=== PATIENT | male | born 1980 | race Caucasian/White ===

== ENCOUNTER 2019-04-23 01:32 | Emergency (ER) | payer OTHER ==
[~2019-04-23] VITALS: Ht 167.6 cm; Wt 105.7 kg
[2019-04-23] MEDS ORDERED: METOCLOPRAMIDE HCL 10 MG/2 ML VIAL. IVP ONE (01:45)
[2019-04-23] MEDS ORDERED: KETOROLAC 15 MG/ML VIAL. IV ONE (01:45)
[2019-04-23] MEDS ORDERED: IV NORMAL SALINE 1000ML BAG 1,000 ML IV ONE (01:45)
[2019-04-23 01:55] LABS: BASO # 0.1 x10^3/uL (0.0-0.2); BASO % 1 % (0-3); EOS # 0.2 x10^3/uL (0.0-0.7); EOS % 2 % (0-3); HEMATOCRIT 41.5 % (39.0-53.0); HEMOGLOBIN 14.1 g/dL (13.0-17.5); LYMPH # 6.4 x10^3/uL (1.0-4.8); LYMPH % 45 % (24-48); MEAN CORPUSCULAR HEMOGLOBIN 29 pg (25-35); MEAN CORPUSCULAR HGB CONC 34 g/dL (31-37); MEAN CORPUSCULAR VOLUME 84 fL (79-100); MONO # 1.3 x10^3/uL (0.0-1.1); MONO % 9 % (0-9); NEUT # 6.1 x10^3/uL (1.8-7.7); NEUT % 43 % (31-73); PLATELET COUNT 280 x10^3/uL (140-400); RED BLOOD COUNT 4.93 x10^6/uL (4.30-5.70); RED CELL DISTRIBUTION WIDTH 14.2 % (11.5-14.5); WHITE BLOOD COUNT 14.2 x10^3/uL (4.0-11.0)
[2019-04-23 02:01] LABS: CALCIUM 9.2 mg/dL (8.5-10.1); CREATININE 1.2 mg/dL (0.7-1.3); GFR 67.1; POTASSIUM 3.3 mmol/L (3.5-5.1)
[2019-04-23 02:08] LABS: ALBUMIN/GLOBULIN RATIO 1.3 (1.0-1.7); TOTAL BILIRUBIN 0.3 mg/dL (0.2-1.0); TOTAL PROTEIN 7.1 g/dL (6.4-8.2)
[2019-04-23 02:17] LABS: BILIRUBIN,URINE NEGATIVE (NEG); CLARITY,URINE CLOUDY; COLOR,URINE YELLOW; NITRITE,URINE NEGATIVE (NEG); PH,URINE 5.5; PROTEIN,URINE NEGATIVE (NEG-TRACE); UROBILINOGEN,URINE 0.2 mg/dL (0.2 mg/dL)
[2019-04-23 02:32] LABS: BACTERIA,URINE 0 /HPF (0-FEW); RBC,URINE OCC /HPF (0-2); SQUAMOUS EPITHELIAL CELL,UR OCC /LPF; WBC,URINE OCC /HPF (0-4)
[2019-04-23 02:33] LABS: HYALINE CASTS, URINE OCCASIONAL /HPF
--- NOTE | 2019-04-23 02:37 | PHYS DOC ---
Past Medical History Past Medical History: Diabetes-Type II, High Cholesterol Past Surgical History: No Surgical History Additional Information: Nonsmoker Alcohol Use: Occasionally Drug Use: None Adult General Chief Complaint Chief Complaint: FLANK PAIN HPI HPI 38-year-old male presents with report of right flank pain with radiation to groin which started approximately 30 minutes prior to arrival. Patient reports some associated nausea and diaphoresis. Denies history of prior episodes. Patient also feels dizzy. Denies trauma. Denies fever or chills. Denies dysuria or hematuria. Review of Systems Review of Systems Constitutional: Denies fever or chills Eyes: Denies redness or eye pain HENT: Denies nasal congestion or sore throat Respiratory: Denies cough or shortness of breath Cardiovascular: Denies chest pain or palpitations GI: Denies abdominal pain; reports nausea and constipation : Denies dysuria or hematuria; reports right groin pain; denies swelling Musculoskeletal: Reports right flank pain; denies neck pain Integument: Denies rash or skin lesions; reports diaphoresis Neurologic: Denies headache, focal weakness or sensory changes Complete systems were reviewed and found to be within normal limits, except as documented in this note. Current Medications Current Medications Current Medications Medications (Trade) Dose Ordered Sig/Gutierrez Start Time Stop Time Status Last Admin Dose Admin Acetaminophen/ Hydrocodone Bitart (Lortab 5/325) 1 tab 1X ONCE 04/23/19 04:30 04/23/19 04:31 UNV Fentanyl Citrate (Fentanyl 2ml Vial) 50 mcg 1X ONCE 04/23/19 02:45 04/23/19 02:46 DC 04/23/19 02:56 50 MCG Ketorolac Tromethamine (Toradol 15mg Vial) 15 mg 1X ONCE 04/23/19 01:45 04/23/19 01:46 DC 04/23/19 02:06 15 MG Metoclopramide HCl (Reglan Vial) 10 mg 1X ONCE 04/23/19 01:45 04/23/19 01:46 DC 04/23/19 02:06 10 MG Sodium Chloride 1,000 ml @ 1,000 mls/hr 1X ONCE 04/23/19 01:45 04/23/19 02:44 DC 04/23/19 02:09 1,000 MLS/HR Tamsulosin HCl (Flomax) 0.4 mg 1X ONCE 04/23/19 04:30 04/23/19 04:31 UNV Allergies Allergies Allergies Coded Allergies Type Severity Reaction Last Updated Verified No Known Drug Allergies 04/23/19 No Physical Exam Physical Exam Constitutional: Well developed, well nourished, uncomfortable, non-toxic appearance HENT: Normocephalic, atraumatic, oropharynx moist Eyes: Conjunctiva normal, no discharge Neck: Normal range of motion, no tenderness, supple Cardiovascular: Heart rate normal, regular rhythm Lungs & Thorax: Bilateral breath sounds clear to auscultation, no wheezing Abdomen: Soft, no tenderness Skin: Warm, dry, no erythema, no rash Back: No tenderness, right CVA tenderness Extremities: No tenderness, ROM intact, no edema Neurologic: Alert and oriented X 3, no focal deficits noted Psychologic: Affect normal, judgement normal Current Patient Data Vital Signs Vital Signs Date Time Temp Pulse Resp B/P (MAP) Pulse Ox O2 Delivery O2 Flow Rate FiO2 04/23/19 02:56 20 99 Room Air 04/23/19 01:32 97.4 62 167/96 (119) 97.4 Lab Values Laboratory Tests Test 04/23/19 01:36 04/23/19 01:40 04/23/19 02:10 Troponin I Quantitative < 0.017 ng/mL (0.000-0.055) White Blood Count 14.2 x10^3/uL (4.0-11.0) H Red Blood Count 4.93 x10^6/uL (4.30-5.70) Hemoglobin 14.1 g/dL (13.0-17.5) Hematocrit 41.5 % (39.0-53.0) Mean Corpuscular Volume 84 fL (79-100) Mean Corpuscular Hemoglobin 29 pg (25-35) Mean Corpuscular Hemoglobin Concent 34 g/dL (31-37) Red Cell Distribution Width 14.2 % (11.5-14.5) Platelet Count 280 x10^3/uL (140-400) Neutrophils (%) (Auto) 43 % (31-73) Lymphocytes (%) (Auto) 45 % (24-48) Monocytes (%) (Auto) 9 % (0-9) Eosinophils (%) (Auto) 2 % (0-3) Basophils (%) (Auto) 1 % (0-3) Neutrophils # (Auto) 6.1 x10^3/uL (1.8-7.7) Lymphocytes # (Auto) 6.4 x10^3/uL (1.0-4.8) H Monocytes # (Auto) 1.3 x10^3/uL (0.0-1.1) H Eosinophils # (Auto) 0.2 x10^3/uL (0.0-0.7) Basophils # (Auto) 0.1 x10^3/uL (0.0-0.2) Sodium Level 141 mmol/L (136-145) Potassium Level 3.3 mmol/L (3.5-5.1) L Chloride Level 103 mmol/L (98-107) Carbon Dioxide Level 24 mmol/L (21-32) Anion Gap 14 (6-14) Blood Urea Nitrogen 22 mg/dL (8-26) Creatinine 1.2 mg/dL (0.7-1.3) Estimated GFR (Cockcroft-Gault) 67.1 BUN/Creatinine Ratio 18 (6-20) Glucose Level 188 mg/dL (70-99) H Calcium Level 9.2 mg/dL (8.5-10.1) Magnesium Level 2.0 mg/dL (1.8-2.4) Total Bilirubin 0.3 mg/dL (0.2-1.0) Aspartate Amino Transferase (AST) 27 U/L (15-37) Alanine Aminotransferase (ALT) 62 U/L (16-63) Alkaline Phosphatase 88 U/L (46-116) Creatine Kinase 195 U/L (39-308) Creatine Kinase MB (Mass) 2.0 ng/mL (0.0-3.6) Creatine Kinase MB Relative Index 1.0 % (0-4) Total Protein 7.1 g/dL (6.4-8.2) Albumin 4.0 g/dL (3.4-5.0) Albumin/Globulin Ratio 1.3 (1.0-1.7) Lipase 141 U/L (73-393) Urine Collection Type Unknown Urine Color Yellow Urine Clarity Cloudy Urine pH 5.5 Urine Specific [place] 1.025 Urine Protein Negative mg/dL (NEG-TRACE) Urine Glucose (UA) Negative mg/dL (NEG) Urine Ketones (Stick) Negative mg/dL (NEG) Urine Blood Negative (NEG) Urine Nitrite Negative (NEG) Urine Bilirubin Negative (NEG) Urine Urobilinogen Dipstick 0.2 mg/dL (0.2 mg/dL) Urine Leukocyte Esterase Negative (NEG) Urine RBC Occ /HPF (0-2) Urine WBC Occ /HPF (0-4) Urine Squamous Epithelial Cells Occ /LPF Urine Bacteria 0 /HPF (0-FEW) Urine Hyaline Casts Occasional /HPF Urine Mucus Mod /LPF Laboratory Tests 04/23/19 01:40 Laboratory Tests 04/23/19 01:40 EKG EKG @0207 NSR at 61bpm, NO ST elevation, Q wave in III and aVF Radiology/Procedures Radiology/Procedures PROCEDURE: CT ABDOMEN PELVIS WO CONTRAST Study: CT abdomen and pelvis without contrast Indication: Right flank pain. Comparison: None. Technique: Helical CT imaging performed of the abdomen and pelvis without the use of intravenous contrast. Sagittal and coronal reformats were obtained. One or more of the following individualized dose reduction techniques were utilized for this examination: 1. Automated exposure control 2. Adjustment of the mA and/or kV according to patient size 3. Use of iterative reconstruction technique. Findings: Paraseptal cyst seen at the periphery of the right lower lobe. Groundglass haziness at the dependent aspect of both lower lungs. The visualized heart appears somewhat prominent in size. No pleural effusion. Hepatic steatosis. Unremarkable gallbladder, pancreas, spleen and adrenal glands. Obstructing nephrolithiasis at the ureterovesicular junction on the right, image 214 series 2, with the calculus measuring 4.2 mm. Resultant mild hydroureteronephrosis. No nephrolithiasis or hydroureteronephrosis on the left. The urinary bladder is mostly collapsed. The prostate is normal in size. Scattered colonic diverticuli without diverticulitis. The appendix is normal. Nonobstructed small bowel. Rounded focus of fat attenuation at the proximal aspect of the transverse duodenum, image 88 series 2. The stomach is unremarkable. Left larger than right fat-containing inguinal hernias. No complicating features. Incidental note made of chronic bilateral pars defects at both L4 and L5 with associated grade 1 anterolisthesis at these levels. Resultant bony encroachment on the bilateral neural foramina at these levels though more pronounced at L4-L5. Sclerotic focus within the left pubic body, image 229 series 2, is favored to represent an enostosis. An enostosis is also seen in the right femoral neck. Impression: 1. Obstructing nephrolithiasis measuring 4.2 mm located at the right ureterovesicular junction. Mild upstream hydronephrosis. 2. Hepatic steatosis. 3. 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 4. Bilateral chronic pars defects at L4 and L5 with resultant grade 1 anterolisthesis at the associated levels. Bony neural foraminal encroachment on the bilateral neural foramina at L4-L5 more so than L5-S1. 5. Left larger than right fat-containing inguinal hernia is without complicating features. Electronically signed by: JONNATHAN CARPIO MD (04/23/2019 4:13 AM) [facility] Course & Med Decision Making Course & Med Decision Making Pertinent Labs and Imaging studies reviewed. (See chart for details) Patient presents with report of right flank pain with associated nausea. Patient does appear uncomfortable and diaphoretic. Pain/nausea addressed. IV fluid hydration given. EKG stable. Labs obtained and posted to chart. CT eviden ce/pelvis confirmed signs of obstructing ureteral calculi 4 mm. Flomax provided. Patient stable for discharge with outpatient follow-up with PCP/urology. Urology referral provided. Discussed findings and plan with patient, who acknowledges understanding and agreement. Dragon Disclaimer Dragon Disclaimer This electronic medical record was generated, in whole or in part, using a voice recognition dictation system. Departure Departure Impression: Primary Impression: Ureteral calculus, right Disposition: 01 HOME, SELF-CARE Condition: STABLE Referrals: MAGALIE ACEVEDO (PCP) THANG LORENOZ MD Patient Instructions: Diet for Kidney Stones, Kidney Stones, Jpcs-en-Demr Scripts Hydrocodone/Apap 5-325 (NORCO 5-325 TABLET) 1 Each Tablet 0.5-1 TAB PO PRN Q6HRS PRN for PAIN, #10 TAB 0 Refills Prov: YAN COPE DO 04/23/19 Tamsulosin Hcl (FLOMAX) 0.4 Mg Cap.er.24h 1 CAP PO DAILY, #7 CAP Prov: YAN COPE DO 04/23/19 Ondansetron (ONDANSETRON ODT) 4 Mg Tab.rapdis 1 TAB PO PRN Q6-8HRS PRN for NAUSEA, #16 TAB Prov: YAN COPE DO 04/23/19 YAN COPE DO Apr 23, 2019 02:37
[2019-04-23] MEDS ORDERED: fentaNYL PF VIAL 100 MCG/2 ML VIAL IV ONE (02:45)
[2019-04-23 04:12] VITALS: BP 147/89
--- NOTE | 2019-04-23 04:16 | RAD ---
Study: CT abdomen and pelvis without contrast Indication: Right flank pain. Comparison: None. Technique: Helical CT imaging performed of the abdomen and pelvis without the use of intravenous contrast. Sagittal and coronal reformats were obtained. One or more of the following individualized dose reduction techniques were utilized for this examination: 1. Automated exposure control 2. Adjustment of the mA and/or kV according to patient size 3. Use of iterative reconstruction technique. Findings: Paraseptal cyst seen at the periphery of the right lower lobe. Groundglass haziness at the dependent aspect of both lower lungs. The visualized heart appears somewhat prominent in size. No pleural effusion. Hepatic steatosis. Unremarkable gallbladder, pancreas, spleen and adrenal glands. Obstructing nephrolithiasis at the ureterovesicular junction on the right, image 214 series 2, with the calculus measuring 4.2 mm. Resultant mild hydroureteronephrosis. No nephrolithiasis or hydroureteronephrosis on the left. The urinary bladder is mostly collapsed. The prostate is normal in size. Scattered colonic diverticuli without diverticulitis. The appendix is normal. Nonobstructed small bowel. Rounded focus of fat attenuation at the proximal aspect of the transverse duodenum, image 88 series 2. The stomach is unremarkable. Left larger than right fat-containing inguinal hernias. No complicating features. Incidental note made of chronic bilateral pars defects at both L4 and L5 with associated grade 1 anterolisthesis at these levels. Resultant bony encroachment on the bilateral neural foramina at these levels though more pronounced at L4-L5. Sclerotic focus within the left pubic body, image 229 series 2, is favored to represent an enostosis. An enostosis is also seen in the right femoral neck. Impression: 1. Obstructing nephrolithiasis measuring 4.2 mm located at the right ureterovesicular junction. Mild upstream hydronephrosis. 2. Hepatic steatosis. 3. 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 4. Bilateral chronic pars defects at L4 and L5 with resultant grade 1 anterolisthesis at the associated levels. Bony neural foraminal encroachment on the bilateral neural foramina at L4-L5 more so than L5-S1. 5. Left larger than right fat-containing inguinal hernia is without complicating features. Electronically signed by: JONNATHAN CARPIO MD (04/23/2019 4:13 AM) [place] [id number]
[2019-04-23] MEDS ORDERED: TAMS0.4C97 PO (04:21)
[2019-04-23] MEDS ORDERED: ONDA4TAB12 PO (04:21)
[2019-04-23] MEDS ORDERED: HYDR-3164 PO (04:27)
[2019-04-23] MEDS ORDERED: TAMSULOSIN 0.4 MG CAP.ER.24H. PO ONE (04:45)
[2019-04-23] MEDS ORDERED: HYDROcodone/APAP 5/325MG 1 TAB TABLET PO ONE (04:45)
--- NOTE | 2019-04-23 08:03 | EKG ---
[facility] [address] [place] [address] Test Date: 2019-04-23 Test Time: 02:07:42 Pat Name: ZAYDA ROBBINS Department: Room: Gender: M [employer]: : 1980 Requested By: YAN COPE Order Number: [id number] Reading MD: Measurements Intervals [place] Rate: 61 P: 0 NH: 182 QRS: -7 QRSD: 94 T: 49 QT: 400 QTc: 404 Interpretive Statements SINUS RHYTHM LEFTWARD AXIS QRS(T) CONTOUR ABNORMALITY CONSISTENT WITH INFERIOR INFARCT PROBABLY OLD ABNORMAL ECG RI6.01 No previous ECG available for comparison
== END 2019-04-23 05:10 | disposition home or self-care (01) ==
LOC: ER 01:32
DX: N13.2 Hydronephrosis with renal and ureteral calculous obstruction (principal); R42 Dizziness and giddiness; K40.90 Unilateral inguinal hernia, without obstruction or gangrene, not specified as recurrent; K76.0 Fatty (change of) liver, not elsewhere classified; E78.00 Pure hypercholesterolemia, unspecified; E11.9 Type 2 diabetes mellitus without complications
CPT/HCPCS: 36415; 74176; 80053; 81001; 82553; 83690; 83735; 84484; 85025; 93005; 96361; 96374; 96375; 99285; J1885; J2765; J3010; J7030

== ENCOUNTER → 2019-09-05 | Outpatient (CLI) | payer OTHER ==
[~2019-09-05] MED LIST: HYDR-3164 PO; ONDA4TAB12 PO; TAMS0.4C97 PO
--- NOTE | 2019-09-05 14:31 | KCIC ---
EXAM: Abdomen and pelvis CT without intravenous contrast. HISTORY: Flank pain. TECHNIQUE: Computed tomographic images of the abdomen and pelvis were obtained without contrast. Multiplanar reformatting was performed. *One or more of the following individualized dose reduction techniques were utilized for this examination: 1. Automated exposure control. 2. Adjustment of the mA and/or kV according to patient size. 3. Use of iterative reconstruction technique. COMPARISON: 04/23/2019. FINDINGS: Evaluation of the lower thorax demonstrates no infiltrate or pleural effusion. No hepatic lesion is seen. The gallbladder, pancreas, spleen and adrenal glands are unremarkable. There is a stable 1.4 cm lipoma within the proximal duodenum. There is no evidence of nephroureterolithiasis or hydronephrosis. The urinary bladder is unremarkable. There are small fat-containing left greater than right inguinal hernias. There is no appendicitis. There is no bowel obstruction. There is no abnormal bowel wall thickening. There are few sigmoid diverticula. There is no evidence of diverticulitis. There is no lymphadenopathy. There is no suspicious osseous lesion. There is degenerative change primarily at L4-L5. There are bilateral pars interarticularis defects with grade 1 anterolisthesis of L4 on L5 and L5 on S1. IMPRESSION: 1. No evidence of nephroureterolithiasis or hydronephrosis. 2. Sigmoid diverticulosis. 3. Minimal grade 1 anterolisthesis of L4 on L5 and L5 on S1 with associated pars interarticularis defects. 4. Stable small lipoma within the proximal duodenum. Electronically signed by: Kaleigh Boland MD (09/05/2019 2:28 PM) [facility]
== END | disposition home or self-care (01) ==
LOC: KCIC CT 13:15
PROVIDERS: ATTEND Physician Assistant Medical
DX: K57.30 Diverticulosis of large intestine without perforation or abscess without bleeding (principal); D17.5 Benign lipomatous neoplasm of intra-abdominal organs; K40.20 Bilateral inguinal hernia, without obstruction or gangrene, not specified as recurrent; M43.17 Spondylolisthesis, lumbosacral region
CPT/HCPCS: 74176

== ENCOUNTER → 2020-06-30 | Outpatient (CLI) | payer OTHER ==
[~2020-06-30] MED LIST changes: +ALBU2.5V8 INH; +ATOR10TA60 PO; +DULA0.75 SQ; +FLUT9.9S NS; +LISI2.5T PO; +SAXA1TBM3 PO
== END ==
LOC: LAB 13:12
PROVIDERS: ATTEND Surgery
DX: Z01.812 Encounter for preprocedural laboratory examination (principal); K40.90 Unilateral inguinal hernia, without obstruction or gangrene, not specified as recurrent; Z20.828 Contact with and (suspected) exposure to other viral communicable diseases
CPT/HCPCS: U0003

== ENCOUNTER 2020-07-03 06:34 | Day surgery (SDC) | payer OTHER ==
[~2020-07-03] VITALS: Ht 167.6 cm; Wt 105.0 kg
[~2020-07-03 06:34] MED LIST changes: +ACETAMINOPHEN 500 MG TABLET PO ONE; +BUPIVACAINE-EPI 0.25%-1:200000 MPF 30 ML VIAL. INJ ONE; +HYDROmorphone 2 MG/ML VIAL IVP PRN; +IV RINGERS,LACTATED 1000ML 1,000 ML IV SCH; +MORPHINE SULFATE 2 MG/ML VIAL. IVP PRN; +PROCHLORPERAZINE 10 MG/2 ML VIAL. IVP PRN; +fentaNYL PF VIAL 100 MCG/2 ML VIAL IVP PRN
[2020-07-03] MEDS ORDERED: MINERAL OIL for SURGERY 10 ML VIAL. MC ONE (07:04)
[2020-07-03] MEDS ORDERED: PROPOFOL 10 MG/ML (20ML) VIAL. IV ONE (07:28)
[2020-07-03] MEDS ORDERED: LIDOCAINE 2% PF 5 ML VIAL. ONE (07:28)
[2020-07-03] MEDS ORDERED: DEXAMETHASONE SOD PHOS 4 MG/ML VIAL ONE (07:28)
[2020-07-03] MEDS: INSULIN LISPRO 100 UNIT/ML 3ML VIAL for OP,RR ONLY. SQ PRN ×2 (07:28→10:18)
[2020-07-03] MEDS ORDERED: ONDANSETRON PF 4 MG/2 ML VIAL. ONE (07:28)
[2020-07-03] MEDS ORDERED: fentaNYL PF VIAL 250 MCG/5 ML VIAL ONE (07:29)
[2020-07-03] MEDS ORDERED: MIDAZOLAM HCL/PF 2 MG/2 ML VIAL. ONE (07:29)
[2020-07-03] MEDS ORDERED: ROCURONIUM 50 MG/5 ML VIAL. ONE (07:30)
--- NOTE | 2020-07-03 07:30 | PDOC1 ---
History and Physical Date of Admission Date of Admission DATE: 07/03/20 TIME: 07:26 Identification/Chief Complaint Chief Complaint Bilateral inguinal hernias Source Source: Chart review, Patient History of Present Illness History of Present Illness 39-year-old male recently had a CT scan for kidney stones was found to have bilateral inguinal hernias left greater than right with incarcerated fat also has complaints of a bulge at his umbilicus consistent with an umbilical hernia Past Medical History Cardiovascular: Hyperlipidemia Pulmonary: No pertinent hx GI: GERD Heme/Onc: No pertinent hx Hepatobiliary: No pertinent hx Psych: No pertinent hx Musculoskeletal: low back pain Rheumatologic: No pertinent hx Infectious disease: No pertinent hx ENT: No pertinent hx Renal/: Other (Kidney stones) Endocrine: Diabetes Past Surgical History Past Surgical History: Other (EGD and colonoscopy) Family History Family History: No Significant Social History Smoke: No ALCOHOL: none Drugs: None Current Medications Current Medications Current Medications Fentanyl Citrate (Fentanyl 2ml Vial) 25 mcg PRN Q5MIN PRN IVP MILD PAIN 1-3; Start 07/03/20 at 06:00; Stop 07/04/20 at 05:59 Fentanyl Citrate (Fentanyl 2ml Vial) 50 mcg PRN Q5MIN PRN IVP MODERATE PAIN 4- 6; Start 07/03/20 at 06:00; Stop 07/04/20 at 05:59 Morphine Sulfate (Morphine Sulfate) 1 mg PRN Q10MIN PRN IVP SEVERE PAIN 7-10; Start 07/03/20 at 06:00; Stop 07/04/20 at 05:59 Ringer's Solution 1,000 ml @ 30 mls/hr Q24H IV ; Start 07/03/20 at 06:00; Stop 07/03/20 at 17:59 Hydromorphone HCl (Dilaudid) 0.5 mg PRN Q10MIN PRN IVP SEVERE PAIN 7-10, 2nd CHOICE; Start 07/03/20 at 06:00; Stop 07/04/20 at 05:59 Prochlorperazine Edisylate (Compazine) 5 mg PACU PRN PRN IVP NAUSEA, MRX1; Start 07/03/20 at 06:00; Stop 07/04/20 at 05:59 Bupivacaine HCl/ Epinephrine Bitart (Sensorcaine-Epi 0.25%-1:338551 Mpf) 30 ml 1X ONCE INJ ; Start 07/03/20 at 06:00; Stop 07/03/20 at 06:01; Status DC Cefazolin Sodium/ Dextrose 50 ml @ 100 mls/hr 1X PREOP PRN IV PRIOR TO PROCEDURE; Start 07/03/20 at 06:00; Stop 07/03/20 at 18:00 Acetaminophen (Tylenol) 1,000 mg ONCE ONCE PO ; Start 07/03/20 at 06:00; Stop 07/03/20 at 06:01; Status DC Mineral Oil (Muri-Lube) 10 ml STK-MED ONCE MC ; Start 07/03/20 at 07:04; Stop 07/03/20 at 07:04; Status DC Insulin Human Lispro (HumaLOG VIAL for OP,RR ONLY) 0-10 units PRN Q1HR PRN SQ PER PROTOCOL; Start 07/03/20 at 07:30; Stop 07/04/20 at 07:29; Status UNV Active Scripts Active Reported Lisinopril 2.5 Mg Tablet 1 Tab PO DAILY Trulicity (Dulaglutide) 0.75 Mg/0.5 Ml Pen.injctr 0.75 Mg SQ WEEKLY Kombiglyze Xr 5-1,000 Mg Tab (Saxagliptin Hcl/Metformin Hcl) 1 Each Tbmp.24hr 1 Tab PO DAILY Atorvastatin Calcium 10 Mg Tablet 1 Tab PO DAILY Flonase Allergy Relief (Fluticasone Propionate) 9.9 Ml [place].susp 2 Sprays NS PRN 1-2XD PRN Proair Hfa Inhaler (Albuterol Sulfate) 8.5 Gm Hfa.aer.ad 1 Puff INH PRN Q6HRS PRN Allergies Allergies: Coded Allergies: adhesive (Unverified Allergy, Intermediate, 07/03/20) ROS Genitourinary: YES Pain Physical Exam General: Alert, Oriented X3, Cooperative, No acute distress HEENT: Atraumatic, EOMI Lungs: Clear to auscultation, Normal air movement Heart: RRR, no murmurs Breasts: Normal Abdomen: Normal bowel sounds, Soft, No tenderness Male Genitals Exam: other (Bilateral inguinal hernia) Rectal Exam: not examined Extremities: No edema Skin: No significant lesion Neuro: Normal speech Psych/Mental Status: Mental status NL Vitals Vitals Vital Signs Date Time Temp Pulse Resp B/P (MAP) Pulse Ox O2 Delivery O2 Flow Rate FiO2 12/17/20 07:03 97.6 62 20 135/73 97 Room Air 97.6 VTE Prophylaxis Ordered VTE Prophylaxis Devices: Yes VTE Pharmacological Prophylaxi: Contraindicated Assessment/Plan Assessment/Plan Bilateral inguinal hernias umbilical hernia plan robotic assisted laparoscopic repair Justifications for Admission Other Justification OLIVER RAGSDALE MD Jul 03, 2020 07:29
[2020-07-03] MEDS ORDERED: NEOSTIGMINE METHYLSULFATE 5 MG/5 ML SYRINGE. ONE (08:58)
[2020-07-03] MEDS ORDERED: GLYCOPYRROLATE 1 MG/5 ML VIAL. ONE (08:58)
--- NOTE | 2020-07-03 09:09 | PDOC4 ---
Operative Note Operative Note Date: July 03, 2020 at 0905 Preoperative diagnosis: Bilateral inguinal hernias umbilical hernia Postoperative diagnosis: Same Procedure: Robotic assisted laparoscopic bilateral inguinal hernia repair with mesh open umbilical hernia repair Surgeon: Armaan Specimen: None Dictation: Patient is 40-year-old male who had a CT scan which showed bilateral inguinal hernias he also complains of a bulge at his umbilicus consistent with an umbilical hernia. Procedure of robotic assisted laparoscopic bilateral inguinal hernia repair with mesh and open umbilical hernia repair was explained to the patient in detail risk benefits were also discussed including bleeding infection injury to intra-abdominal contents possible necessitating further or open operations alternatives to this procedure also discussed with patient who seemed to understand and gave both verbal and written consent to have the procedure performed. Patient was taken to the operating room placed in supine position general anesthesia was initiated once patient was sleeping in bed was placed in low lithotomy position and his abdomen was prepped and draped in usual sterile fashion using ChloraPrep. An area just above the umbilicus was injected with quarter percent Marcaine with epinephrine incision was made 11 blade scalpel and a varies needle was placed within the abdomen creating pneumoperitoneum once this was complete a millimeter da Grisel port was placed in the 8 mm da Grisel camera was placed within the abdomen which was inspected no other abnormalities were noted other than bilateral inguinal hernias. 8 mm da Grisel port was placed in the right midabdomen and one in the left midabdomen the da Grisel robot was brought and docked all port sites surgeon went to the robotic console using a grasper and Endo Escobar scissors the peritoneum on the right side was incised and a flap was propagated inferiorly reducing the hernia sac and contents. A large Bard 3D max for the right side was placed over the hernia defect tensions were then turned to the left side where the peritoneum again was incised with a Endo Escobar scissors electrocautery this flap was propagated posteriorly and inferiorly reducing the hernia sac and contents a large Bard 3D max mesh for the left side was then placed over the hernia defect. The peritoneum was then closed over both sides with a running 2 OV lock absorbable suture the superior border of the left mesh was tacked with a 2-0 Vicryl single interrupted sutures and the peritoneum closed over the mesh. Sutures removed with the surgeon went back to the operative field the robot was undocked from all ports ports were all removed the fascial defect at the umbilicus was closed with a [id number] 0 Vicryl suture closing the hernia defect. All port sites were then closed with 4 subcuticular Monocryl Mastisol Steri-Strips and island dressings were applied. Patient was awakened and extubated in the operating room taken to recovery in stable condition all sponge instrument needle counts listed as correct estimated blood loss 10 mL OLIVER RAGSDALE MD Jul 03, 2020 09:09
--- NOTE | 2020-07-03 09:11 | DISCH ---
DISCHARGE INSTRUCTIONS Condition on Discharge Condition on Discharge: Stable Activity After Discharge Activity Instructions for Disc: Avoid exertion Other activity instructions: No lifting more than 20 pounds for 2 weeks Diet after Discharge Diet after Discharge: Regular Wound Incision Care Other wound/incision instructi: May shower in 24 hours Contacting the DRBrandin after DC Call your doctor for: If your condition worsens Follow-Up Follow up with: Dr. Ragsdale in 2 weeks OLIVER RAGSDALE MD Jul 03, 2020 09:11
[2020-07-03] MEDS ORDERED: fentaNYL PF VIAL 100 MCG/2 ML VIAL ONE (09:55)
[2020-07-03] MEDS ORDERED: KETOROLAC 30 MG/ML VIAL. IVP ONE (10:00)
[2020-07-03] MEDS ORDERED: KETOROLAC 15 MG/ML VIAL. IVP ONE (10:00)
[2020-07-03] MEDS ORDERED: oxyCODONE/APAP 5/325 1 TAB TABLET PO ONE ×2 (10:00)
[2020-07-03] MEDS ORDERED: INSULIN LISPRO 100 UNIT/ML 3ML VIAL for OP,RR ONLY. SQ ONE ×2 (10:30)
[2020-07-03] MEDS ORDERED: DOCU-109 PO (10:33)
[2020-07-03] MEDS ORDERED: OXYC-325 PO (10:33)
[2020-07-03] MEDS ORDERED: PSYL0.5215 PO (10:35)
[2020-07-03 11:00] VITALS: BP 120/50
== END 2020-07-03 12:02 | disposition home or self-care (01) ==
LOC: SURG 06:34
PROVIDERS: ATTEND Surgery
DX: K40.20 Bilateral inguinal hernia, without obstruction or gangrene, not specified as recurrent (principal); K42.9 Umbilical hernia without obstruction or gangrene; E78.00 Pure hypercholesterolemia, unspecified; E66.9 Obesity, unspecified; E11.22 Type 2 diabetes mellitus with diabetic chronic kidney disease; N18.9 Chronic kidney disease, unspecified; Z72.89 Other problems related to lifestyle; Z79.84 Long term (current) use of oral hypoglycemic drugs; Z79.899 Other long term (current) drug therapy; Z98.890 Other specified postprocedural states; Z88.8 Allergy status to other drugs, medicaments and biological substances; Z68.37 Body mass index [BMI] 37.0-37.9, adult
CPT/HCPCS: 49585; 49650; 82962; C1781; J0690; J1100; J1815; J1885; J2250; J2405; J2704; J2710; J3010; J3490; J7120; S2900

== ENCOUNTER → 2021-03-27 | Outpatient (CLI) | payer OTHER ==
[~2021-03-27] MED LIST changes: -ACETAMINOPHEN 500 MG TABLET PO ONE; -BUPIVACAINE-EPI 0.25%-1:200000 MPF 30 ML VIAL. INJ ONE; +DOCU-109 PO; -HYDROmorphone 2 MG/ML VIAL IVP PRN; -IV RINGERS,LACTATED 1000ML 1,000 ML IV SCH; -LISI2.5T PO; +LISI2.5T12 PO; -MORPHINE SULFATE 2 MG/ML VIAL. IVP PRN; +OXYC-325 PO; -PROCHLORPERAZINE 10 MG/2 ML VIAL. IVP PRN; +PSYL0.5215 PO; -fentaNYL PF VIAL 100 MCG/2 ML VIAL IVP PRN
--- NOTE | 2021-03-27 18:04 | RAD ---
EXAMINATION: US THYROID, 03/27/2021 9:40 AM CLINICAL INDICATION: G mutation, evaluate for thyroid cancer. TECHNIQUE: Grayscale and color Doppler sonographic images of the thyroid are submitted for interpreta tion. COMPARISON: None FINDINGS: The right thyroid lobe measures 4.2 x 1.5 x 1.6 cm. The left thyroid lobe measures 5.1 x 1 .3 x 1.4 cm. Isthmus measures 3 mm. Thyroid parenchyma is homogeneous with normal echogenicity. No th yroid nodules. IMPRESSION: Normal thyroid gland. Electronically signed by: Bronwyn Jimenez MD (03/27/2021 6:02 PM) [id number]
== END ==
LOC: US 09:57
PROVIDERS: ATTEND Physician Assistant Medical
DX: Z15.89 Genetic susceptibility to other disease (principal); Z80.8 Family history of malignant neoplasm of other organs or systems
CPT/HCPCS: 76536